=== PATIENT | female | born 1935 | race Caucasian/White ===

== ENCOUNTER 2020-06-05 17:19 | Inpatient (IN) | payer MEDICARE ==
[~2020-06-05] VITALS: Ht 172.7 cm; Wt 81.6 kg
[~2020-06-05 17:19] MED LIST: BREO ELLIPTA 21 EACH INH; HYZAAR 100-12.1 EACH PO; MUCINEX600 MG PO; SYNTHROID112 MCG PO; ULTRAM50 MG PO; XYZAL5 MG PO; ZOCOR40 MG PO
[2020-06-05 18:49] LABS: HEMOGLOBIN 9.1 gm/dl (12.3-15.3); WHITE BLOOD COUNT 17.7 K/UL (4.5-11.0)
[2020-06-06 04:53] LABS: HEMOGLOBIN 7.7 gm/dl (12.3-15.3)
[2020-06-06 04:57] LABS: RED BLOOD COUNT 2.44 M/UL (4.00-5.10)
[2020-06-06 09:12] LABS: RED BLOOD COUNT 2.54 M/UL (4.00-5.10); WHITE BLOOD COUNT 15.1 K/UL (4.5-11.0)
[2020-06-06] MEDS ORDERED: VITAMIN D325 MCG PO (11:48)
[2020-06-06] MEDS ORDERED: DAILY VALUE1 EACH PO (11:48)
[2020-06-06] MEDS ORDERED: VITAMIN E100 UNI1 PO (11:49)
[2020-06-06] MEDS ORDERED: VITAMIN C500 M4 PO (11:49)
[2020-06-06] MEDS ORDERED: BIOTIN1 MG PO (11:49)
[2020-06-06] MEDS ORDERED: PROAIR HFA8.5 GM INH (11:50)
[2020-06-06] MEDS ORDERED: CULTURELLE1 EACH PO (11:50)
[2020-06-07 06:11] LABS: HEMOGLOBIN 7.1 gm/dl (12.3-15.3); RED BLOOD COUNT 2.33 M/UL (4.00-5.10)
[2020-06-07 06:14] LABS: WHITE BLOOD COUNT 10.7 K/UL (4.5-11.0)
--- NOTE | 2020-06-07 12:51 | NUR ---
AT 1045 I RECIEVED A CALL FROM THE LAB REGARDING A CRITICAL LAB [facility] OF 11.6. I INFORMED DR. LU. NO FURTHER ACTION WAS REQUIRED PER DR. LU. WILL CONTINUE TO MONITOR PT.
[2020-06-08 08:55] LABS: RED BLOOD COUNT 2.56 M/UL (4.00-5.10); WHITE BLOOD COUNT 8.7 K/UL (4.5-11.0)
[2020-06-09 04:09] LABS: HEMOGLOBIN 7.5 gm/dl (12.3-15.3); RED BLOOD COUNT 2.44 M/UL (4.00-5.10); WHITE BLOOD COUNT 9.6 K/UL (4.5-11.0)
[2020-06-09 04:40] LABS: BUN/CREATININE RATIO 31 (0-10)
[2020-06-09] MEDS ORDERED: HYDROCODON-ACE1 EAC6 PO (07:59)
[2020-06-10 03:31] LABS: HEMOGLOBIN 7.1 gm/dl (12.3-15.3); WHITE BLOOD COUNT 8.3 K/UL (4.5-11.0)
[2020-06-10 03:51] LABS: BUN/CREATININE RATIO 17 (0-10)
[2020-06-10 03:56] LABS: RED BLOOD COUNT 2.27 M/UL (4.00-5.10)
[2020-06-10] MEDS ORDERED: CYCLOBENZAPRINE10 MG PO (11:49)
[2020-06-10] MEDS ORDERED: ENOXAPARIN30 MG/0.3 SC (11:49)
[2020-06-10] MEDS ORDERED: VENTOLIN HFA 66.7 GM INH (11:49)
[2020-06-11 03:45] LABS: HEMOGLOBIN 7.9 gm/dl (12.3-15.3); WHITE BLOOD COUNT 8.9 K/UL (4.5-11.0)
[2020-06-11 04:01] LABS: BUN/CREATININE RATIO 16 (0-10)
[2020-06-11 04:07] LABS: RED BLOOD COUNT 2.62 M/UL (4.00-5.10)
--- NOTE | 2020-06-11 12:04 | NUR ---
DR. LU ASKED FOR PT UPDATE ON PATIENT. SPOKE WITH PT PATIENT IS MAX OF 2 ASSIST. WAS SEEN BY PT YESTERDAY AND WILL BE SEEN LATER TODAY. WCTM
[2020-06-12 03:16] LABS: HEMOGLOBIN 7.9 gm/dl (12.3-15.3); RED BLOOD COUNT 2.64 M/UL (4.00-5.10); WHITE BLOOD COUNT 10.3 K/UL (4.5-11.0)
[2020-06-12 03:37] LABS: BUN/CREATININE RATIO 13 (0-10)
--- NOTE | 2020-06-14 00:06 | NUR ---
2030 DRSG TO LEFT HIP CHANGED DUE TO MODERATE WATERY YELLOWISH DRAINGE. ISLAND DRSG APPLIED, 4X4 AND ABD PAD PLACE OVER ISLAND DRSG. SECURED WITH MEFIX TAPE. PT TOLERATED WELL.
--- NOTE | 2020-06-14 00:08 | NUR ---
2014 PT HAD TO HAVE ASSIST OF 2 MALE NURSES TO HELP HER BACK TO BED AT THIS TIME.
[2020-06-14 06:35] LABS: HEMOGLOBIN 8.5 gm/dl (12.3-15.3); RED BLOOD COUNT 2.82 M/UL (4.00-5.10); WHITE BLOOD COUNT 11.5 K/UL (4.5-11.0)
[2020-06-14 07:07] LABS: BUN/CREATININE RATIO 19 (0-10)
[2020-06-15 05:57] LABS: HEMOGLOBIN 7.7 gm/dl (12.3-15.3); RED BLOOD COUNT 2.56 M/UL (4.00-5.10); WHITE BLOOD COUNT 10.2 K/UL (4.5-11.0)
[2020-06-15 06:26] LABS: BUN/CREATININE RATIO 15 (0-10)
[2020-06-15] MEDS ORDERED: FERROUS SULFAT325 M2 PO (10:11)
== END 2020-06-15 11:30 | DRG 956 ==
LOC: ER1 17:19 → M/S 21:17 → CDU 21:17 → M/S 06-06 08:00
PROVIDERS: Internal Medicine; Orthopaedic Surgery; Physician Assistant; ADMIT Internal Medicine
PROC: 0QSC04Z Reposition Left Lower Femur with Internal Fixation Device, Open Approach (ICD-10-PCS; 2020-06-06)
PROC: 0QS904Z Reposition Left Femoral Shaft with Internal Fixation Device, Open Approach (ICD-10-PCS; principal; 2020-06-06 12:00)
PROC: 30233N1 Transfusion of Nonautologous Red Blood Cells into Peripheral Vein, Percutaneous Approach (ICD-10-PCS; 2020-06-08)
PROC: 30233N1 Transfusion of Nonautologous Red Blood Cells into Peripheral Vein, Percutaneous Approach (ICD-10-PCS; 2020-06-10)
DX: S72.452A Displaced supracondylar fracture without intracondylar extension of lower end of left femur, initial encounter for closed fracture (principal); T79.6XXA Traumatic ischemia of muscle, initial encounter; M97.02XA Periprosthetic fracture around internal prosthetic left hip joint, initial encounter; D62 Acute posthemorrhagic anemia; N17.9 Acute kidney failure, unspecified; Z20.822 Contact with and (suspected) exposure to COVID-19; E03.9 Hypothyroidism, unspecified; I10 Essential (primary) hypertension; J45.909 Unspecified asthma, uncomplicated; M81.0 Age-related osteoporosis without current pathological fracture; R53.81 Other malaise; W01.0XXA Fall on same level from slipping, tripping and stumbling without subsequent striking against object, initial encounter; Y93.E3 Activity, vacuuming; Z90.49 Acquired absence of other specified parts of digestive tract; Y92.009 Unspecified place in unspecified non-institutional (private) residence as the place of occurrence of the external cause; Z79.890 Hormone replacement therapy; Z79.899 Other long term (current) drug therapy
CPT/HCPCS: 36415; 36430; 51702; 70450; 71045; 72125; 72128; 72131; 72192; 73502; 73552; 73560; 73590; 73700; 76000; 80048; 80053; 81001; 82550; 82553; 83735; 83874; 84484; 85025; 85027; 85610; 86850; 86900; 86901; 86920; 93005; 94640; 94664; 94760; 97110; 97110-GP-CQ; 97162; 97166; 97530; 97530-GP-CQ; 99285; C1713; J0592; J0690; J1100; J1644; J1650; J2001; J2270; J2370; J2704; J2710; J2795; J3010; J7030; J7120; P9016; U0002

== ENCOUNTER → 2021-03-12 | Outpatient (CLI) | payer MEDICARE ==
[~2021-03-12] MED LIST changes: +BIOTIN1 MG PO; +CULTURELLE1 EACH PO; +CYCLOBENZAPRINE10 MG PO; +DAILY VALUE1 EACH PO; +ENOXAPARIN30 MG/0.3 SC; +FERROUS SULFAT325 M2 PO; +HYDROCODON-ACE1 EAC6 PO; +PROAIR HFA8.5 GM INH; +VENTOLIN HFA 66.7 GM INH; +VITAMIN C500 M4 PO; +VITAMIN D325 MCG PO; +VITAMIN E100 UNI1 PO
== END ==
LOC: HEART CORB 11:16
DX: R60.0 Localized edema (principal); R06.02 Shortness of breath; I11.9 Hypertensive heart disease without heart failure; I27.20 Pulmonary hypertension, unspecified; I08.8 Other rheumatic multiple valve diseases
CPT/HCPCS: 93306